=== PATIENT | female | born 1975 ===

== ENCOUNTER 2019-08-21 22:31 | Observation (INO) | payer SELFPAY ==
[2019-08-21 23:00] LABS: #Eosinphils 0.2 thou/uL (0.0-0.7); #Lymphocytes 2.7 thou/uL (1.20-3.40); #Monocytes 0.5 thou/uL (0.11-0.59); %Basophils 0.1 % (0.0-1.0); %Eosinophils 1.4 % (0.0-10.0); %Lymphocytes 23.5 % (21.0-51.0); %Monocytes 4.4 % (0.0-10.0); %Neutrophils 70.5 % (42.0-75.0); Hemoglobin 13.2 g/dL (12.0-16.0); Mean Corpuscular HGB CONC 34.8 g/dL (32.0-36.0); Mean Corpuscular Hemoglobin 29.4 pg (27.0-31.0); Mean Corpuscular Volume 84.5 fL (78.0-98.0); Mean Platelet Volume 7.5 fL (7.4-10.4); Platelet Count 267 thou/uL (130-400); RBC Distribution Width 12.4 % (11.5-14.5); Red Blood Cell (RBC) Count 4.47 mill/uL (4.20-5.40); White Blood Cell (WBC) Count 11.3 thou/uL (4.8-10.8)
[2019-08-21] MEDS ORDERED: Ondansetron PF 4 MG/2 ML Vial ONE (23:05)
[2019-08-21] MEDS ORDERED: Morphine 4 MG/ML VIAL ONE (23:05)
[2019-08-21 23:09] LABS: BHCG - Serum Negative (NEGATIVE); Pregs Control Background? CLEAR/WHITE (CLR/WHITE); Pregs Control Bar Appear? YES (CONTROL BAR)
[2019-08-21 23:21] LABS: ALT (SGPT) 35 U/L (8-55); AST (SGOT) 24 U/L (5-34); Albumin 4.8 g/dL (3.5-5.0); Alkaline Phosphatase 71 U/L (40-110); Anion Gap 18 mmol/L (10-20); BUN (Urea Nitrogen) 7 mg/dL (7.0-18.7); Bilirubin, Total 0.3 mg/dL (0.2-1.2); Calc. Creatinine Clearance 0 mL/min (70-130); Calcium 9.9 mg/dL (7.8-10.44); Carbon Dioxide 23 mmol/L (22-29); Chloride 99 mmol/L (98-107); Estimated GFR-MDRD 86; Globulin 3.1 g/dL (2.4-3.5); Glucose 185 mg/dL (70-105); Lipase 28 U/L (8-78); Potassium 3.6 mmol/L (3.5-5.1); Protein, Total 7.9 g/dL (6.0-8.3); Sodium 136 mmol/L (136-145)
--- NOTE | 2019-08-21 23:41 | ULT ---
ULTRASOUND ABDOMEN LIMITED: (RIGHT UPPER QUADRANT) DATE: 08/21/2019 HISTORY: 44-year-old female with right upper quadrant abdominal pain, nausea, and emesis FINDINGS: Gallbladder:Distended. Multiple tiny mobile gallstones a few millimeters in size each. Mural thickeni ng up to 6 mm. Surrounded by thin rim of pericholecystic fluid-edema. Positive sonographic Vargas sign. Common duct: 6 mm. Liver:Hyperechoic consistent with fatty liver. Enlarged. Pancreas:Nonspecific sonographic appearance. Right kidney:No hydronephrosis. Possible small calculus at upper pole. IMPRESSION: 1. Positive for cholelithiasis. 2. Probably positive for acute cholecystitis
[2019-08-21] MEDS ORDERED: Piperacillin/Tazobactam 4.5 GM VIAL ONE (23:54)
[2019-08-22 00:01] LABS: Bacteria/HPF None Seen HPF (None Seen); Bilirubin Negative (Negative); Blood, Urine 1+ (Negative); Clarity Clear (Clear); Glucose, Urine (Dipstick) Normal (Negative); Leukocyte Negative Leu/uL (Negative); Nitrite Negative (Negative); Protein, Urine (Dipstick) 30 mg/dL (Neg-Trace); RBC/HPF 0-3 HPF (0-3); Squamous Epithelial 0-3 HPF (0-3); Urobilinogen Normal mg/dL (Less than 2); WBC/HPF 0-3 HPF (0-3)
[2019-08-22] MEDS ORDERED: Ondansetron PF 4 MG/2 ML Vial IVP PRN ×2 (02:26→11:59)
[2019-08-22] MEDS ORDERED: Sodium Chloride 0.9% 1,000 ML IV SCH (02:26)
[2019-08-22] MEDS ORDERED: Ondansetron ODT 4 MG TAB SL PRN (02:26)
[2019-08-22] MEDS ORDERED: Morphine 4 MG/ML VIAL SLOW IVP PRN (02:27)
[2019-08-22 04:33] VITALS: BMI 28.7
[2019-08-22] MEDS ORDERED: Piperacillin/Tazobactam 4.5 GM in Sodium Chloride 0.9% 100 ML IVPB SCH (06:00)
[2019-08-22] MEDS ORDERED: Bupivacaine 0.25% HCL 30 ML VIAL ONE (09:35)
[2019-08-22] MEDS ORDERED: Lidocaine 1% (PF) 30 ML VIAL ONE (09:35)
[2019-08-22] MEDS ORDERED: Lidocaine 1% w/Epinephrine 1:100K 20 ML VIAL ONE (09:36)
[2019-08-22] MEDS ORDERED: Piperacillin/Tazobactam 3.375 GM VIAL ONE (09:40)
[2019-08-22] MEDS ORDERED: Sodium Chloride 0.9% 100 ML ONE (09:41)
[2019-08-22] MEDS ORDERED: Fentanyl 100 MCG/2 ML VIAL ONE (09:47)
--- NOTE | 2019-08-22 10:00 | HP ---
CHIEF COMPLAINT: Right upper quadrant pain. HISTORY OF PRESENT ILLNESS: Ms. Nguyen is a 44-year-old woman who began having upper abdominal pain three days ago. This radiates across her entire upper abdomen that is worse on the right side. It bothers her mostly when she tries to eat or at night when she is trying to sleep. She has had nausea and vomiting, but no hematemesis. No fevers or chills nothing that she tried at home was making it any better, so she came into the emergency room, where workup was consistent with acute cholecystitis. She does not have any past history of gallbladder or liver problems and has been otherwise well. PAST MEDICAL HISTORY: Diabetes and hypercholesterolemia. PAST SURGICAL HISTORY: x3. SOCIAL HISTORY: She does not smoke, drink, or use illicit drugs. REVIEW OF SYSTEMS: Ten-system review of systems is negative except per HPI. She does not have any upper respiratory infection symptoms. FAMILY HISTORY: Diabetes in multiple family members including her father and heart attack in a grandmother. MEDICATIONS: Metformin and an unknown cholesterol pill. ALLERGIES: NO KNOWN DRUG ALLERGIES. PHYSICAL EXAMINATION: VITAL SIGNS: Temperature has been below 100, heart rate is around 100. She has been intermittently hypertensive. GENERAL: Reveals a healthy-appearing woman, in no acute distress. She is not jaundiced, icteric flushed, or toxic in appearance. HEENT: Unremarkable. NECK: Supple without lymphadenopathy or thyroid nodules. HEART: Regular in its rate and rhythm without murmurs, rubs, or gallops. LUNGS: Clear to auscultation bilaterally. ABDOMEN: Soft and nondistended. She is tender to palpation in the right upper quadrant, but does not exhibit rigidity, rebound, or guarding. No palpable masses or hernias. Healed Pfannenstiel incision. EXTREMITIES: Warm and well perfused. NEUROLOGIC: No focal deficits. PSYCHIATRIC: Alert, oriented, and appropriate. Primarily Mexican speaking, but answers questions appropriately through a hotel general manager. LABORATORY DATA: White count is mildly elevated, but LFTs are entirely normal. Ultrasound images are reviewed and I agree with the written report. Common bile duct is normal caliber, but the gallbladder has multiple gallstones and wall thickening and pericholecystic fluid. ASSESSMENT: Cholelithiasis and acute cholecystitis. PLAN: Laparoscopic cholecystectomy. The diagnosis and recommended treatment were discussed in detail with the patient using a hotel general manager. The inherent risks of the surgery were also discussed. These include, but are not limited to, bleeding, infection, risks of anesthesia, damage to nearby structures including bowel, liver, and bile duct, need for open surgery, need for other procedures such as ERCP. She understands and accepts these risks and wishes to proceed. She is on scheduled antibiotics and has been posted for the operating room today. Job ID: [id number]
[2019-08-22] MEDS ORDERED: Lidocaine 1% PF 5 ML VIAL ONE (10:20)
[2019-08-22] MEDS ORDERED: Glycopyrrolate 0.2 MG/ML 5 ML SYRINGE ONE (10:20)
[2019-08-22] MEDS ORDERED: Ondansetron PF 4 MG/2 ML Vial ONE ×2 (10:20→12:43)
[2019-08-22] MEDS ORDERED: Ketorolac Tromethamine 30 MG/ML VIAL ONE (10:20)
[2019-08-22] MEDS ORDERED: PROPOFOL 200 MG/20 ML VIAL ONE (10:20)
[2019-08-22] MEDS ORDERED: PHENYLEPHRINE-NS 100 MCG/ML 10 ML SYRINGE ONE (10:20)
[2019-08-22] MEDS ORDERED: Rocuronium Bromide 10 MG/ML (10ML VIAL) ONE (10:20)
[2019-08-22] MEDS ORDERED: Succinylcholine Chloride 20 MG/ML 10 ml SYRINGE FS ONE (10:20)
[2019-08-22] MEDS ORDERED: Dexamethasone 20 MG/5 ML VIAL ONE (10:20)
[2019-08-22] MEDS ORDERED: Promethazine HCl 25 MG/ML VIAL SLOW IVP PRN (11:49)
[2019-08-22] MEDS ORDERED: HYDROmorphone 2 MG/ML VIAL SLOW IVP PRN (11:49)
[2019-08-22] MEDS ORDERED: Meperidine HCl/PF 25 MG/ML VIAL SLOW IVP PRN (11:49)
[2019-08-22] MEDS ORDERED: HumaLOG 300 UNITS/3 ML VIAL SC PRN (11:59)
[2019-08-22] MEDS ORDERED: Mag-Al 1200 mg/1200 mg/30 ML UDCUP PO PRN (11:59)
[2019-08-22] MEDS ORDERED: hydrALAZINE 20 MG/ML VIAL SLOW IVP PRN (11:59)
[2019-08-22] MEDS ORDERED: Calcium Carbonate 500 MG ChewTAB PO PRN (11:59)
[2019-08-22] MEDS ORDERED: HYDROcodone/Acetaminophen 5/325 mg Tablet PO PRN ×2 (11:59)
[2019-08-22] MEDS ORDERED: traMADol HCl 50 MG TAB PO PRN ×2 (11:59)
[2019-08-22] MEDS ORDERED: Dextrose 50% Abboject 50 ML SYRINGE SLOW IVP PRN (11:59)
[2019-08-22] MEDS ORDERED: Promethazine HCl 25 MG/ML VIAL IM PRN (11:59)
[2019-08-22] MEDS ORDERED: Morphine 2 MG/ML SYRINGE SLOW IVP PRN (11:59)
[2019-08-22] MEDS ORDERED: Acetaminophen 650 MG Suppository PR PRN (11:59)
[2019-08-22] MEDS ORDERED: Acetaminophen 325 MG TAB PO PRN (11:59)
[2019-08-22] MEDS ORDERED: Dextrose 5% in Water 1,000 ML IV PRN (11:59)
[2019-08-22] MEDS ORDERED: Piperacillin/Tazobactam 3.375 GM in Sodium Chloride 0.9% 100 ML IVPB SCH (12:00)
--- NOTE | 2019-08-22 12:10 | PDOC.OP ---
Operative Note - Operative Note Operative Note: DATE OF PROCEDURE: 08/22/2019 PROCEDURES: Laparoscopic cholecystectomy. SURGEON: Fran Gonzáles M.D. PREOPERATIVE DIAGNOSIS: Cholelithiasis, cholecystitis POSTOPERATIVE DIAGNOSIS: Cholelithiasis, cholecystitis FINDINGS: Hydropic, edematous gallbladder with multiple stones in neck. Fatty liver. HISTORY: Patient with symptoms of cholelithiasis, cholecystitis. Laparoscopic cholecystectomy was recommended for symptomatic relief. Preoperative LFTs were normal and bile duct was normal caliber on preoperative imaging. PROCEDURE: After informed consent was obtained and appropriate preoperative antibiotics were administered, the patient was taken to the operating room and placed in the supine position and general endotracheal anesthesia was administered. The stomach was decompressed with an OG tube and the abdomen was prepped and draped in standard sterile fashion. Local anesthesia was infused to the skin and subcutaneous tissues at the umbilical level. A transverse skin incision was made. The fascia was elevated and a Veress needle was placed into the abdominal cavity without difficulty. Opening pressure was less than 5 and carbon dioxide gas easily insufflated to an intra-abdominal pressure of 15, which the patient tolerated well. The Veress needle was withdrawn and a [place] port advanced under direct vision. The abdominal cavity was carefully examined. There was no evidence of Veress needle or of trocar injury. Local anesthesia was infused to the skin and subcutaneous tissues at the epigastric, right upper quadrant, and right lateral abdominal sites and trocars were placed under direct vision of the laparoscope. The gallbladder had acute filmy omental adhesion which were easily mobilized off the gallbladder, which was too tense to grasp. 120 mL of pale clear bile were aspirated, following which the fundus of the gallbladder was grasped and retracted superiorly. The infundibulum was grasped and retracted laterally. The serosa was stripped inferiorly at the level of the neck of the gallbladder exposing the cystic duct and artery which were traced clearly to their insertion in the gallbladder. Critical view of safety was obtained and the cystic duct and artery were clipped and divided between clips. The gallbladder was then dissected free of the gallbladder bed using hook electrocautery. Prior to complete removal of the gallbladder from the gallbladder bed, the area of the cystic duct and artery stumps was examined. The clips were in good position completely across these structures and there was no bleeding and no leakage of bile. The gallbladder was then placed into an EndoCatch bag and drawn out through the epigastric incision. Due to the inflamed edematous nature of the gallbladder, it tore into several pieces during removal. The epigastric trocar was replaced and the operative site easily irrigated to clear. There was no significant bleeding or spillage of bile. The epigastric trocar was removed and the fascia closed under direct laparoscopic vision with a 0 Vicryl suture on a GraNee needle in a [id number] manner with excellent technical result. The right upper quadrant and right lateral abdominal trocars were removed and hemostasis verified. Carbon dioxide gas was allowed to desufflate through the umbilical trocar which was then removed. The skin incisions were closed with 4-0 subcuticular Monocryl sutures and Dermabond dressings were placed. The patient was extubated and taken to the recovery room in good condition. There were no complications. ESTIMATED BLOOD LOSS: Minimal. SPECIMEN : Gallbladder and contents. Bile sent for gram stain and culture.
[2019-08-22] MEDS ORDERED: Promethazine HCl 25 MG/ML VIAL ONE (12:45)
[2019-08-22 17:18] VITALS: BP 117/76; TEMP 98.9
[2019-08-22] MEDS ORDERED: Famotidine 20 MG TAB PO SCH (21:00)
[2019-08-22] MEDS ORDERED: Docusate 100 MG CAP PO SCH (21:00)
[2019-08-22] MEDS ORDERED: Famotidine/PF 20 mg/2ml Vial SLOW IVP SCH (21:00)
[2019-08-23] MEDS ORDERED: Enoxaparin Sodium 40 MG/0.4 ML SYRINGE SC SCH (09:00)
== END 2019-08-22 17:12 | disposition home or self-care (01) ==
LOC: ERS 22:31 → SJJU 08-22
PROVIDERS: ADMIT Surgery; ATTEND Surgery
PROC: 0FT44ZZ Resection of Gallbladder, Percutaneous Endoscopic Approach (ICD-10-PCS; principal; 2019-08-22)
DX: K80.12 Calculus of gallbladder with acute and chronic cholecystitis without obstruction (principal); K76.0 Fatty (change of) liver, not elsewhere classified; E11.9 Type 2 diabetes mellitus without complications; E78.00 Pure hypercholesterolemia, unspecified; Z79.84 Long term (current) use of oral hypoglycemic drugs; Z79.899 Other long term (current) drug therapy
CPT/HCPCS: 36415; 36416; 76705; 80053; 81003; 81015; 83690; 84703; 85025; 87070; 87077; 87186; 87205; 88304; 96361; 96365; 96366; 96375; 96376; G0378; J1100; J1885; J2001; J2270; J2405; J2543; J2550; J2704; J3010; J3490; S0020